=== PATIENT | female | born 1985 | race Caucasian/White ===

== ENCOUNTER 2020-08-29 09:58 | Emergency (ER) | payer MEDICAID, OTHER ==
[2020-08-29] MEDS ORDERED: BUFFERED LIDOCAINE 10 ML SYRINGE SUBQ STA (10:21)
[2020-08-29 10:29] VITALS: BP 102/66
--- NOTE | 2020-08-29 11:01 | ED Physician Documentation ---
PD HPI UPPER EXT INJURY - Stated complaint Stated Complaint: RT FINGER LAC - Chief complaint Chief Complaint: Laceration - History obtained from History obtained from: Patient - History of Present Illness Location: Right, Finger (index) Type of injury: Laceration Where injury occurred: Work Timing - onset: Today Timing - duration: Hours Timing - details: Abrupt onset, Still present in ED Improved by: Rest, Immobilization Worsened by: Moving, Palpating Associated symptoms: No: Weakness, Numbness, Tingling, Swelling Contributing factors: No: Anticoagulated Similar symptoms before: Diagnosis (laceration) Recently seen: Not recently seen - Additonal information Additional information: 35-year-old left handed female cutting vegetables with a brand-new knife lacerated her right index finger. She was able to control bleeding with direct pressure comes now for suturing she has no functional deficit. She is up-to-date on her tetanus. Review of Systems Constitutional: denies: Fever Respiratory: denies: Cough GI: denies: Vomiting PD PAST MEDICAL HISTORY - Past Medical History Past Medical History: No Cardiovascular: None Respiratory: None Neuro: None Endocrine/Autoimmune: None GI: None [employer]: None : None HEENT: None Psych: None Musculoskeletal: None Derm: None - Past Surgical History Past Surgical History: No - Present Medications Home Medications: Ambulatory Orders Medication Instructions Recorded Confirmed No Known Home Medications 08/29/20 08/29/20 - Allergies Allergies/Adverse Reactions: Allergies Allergy/AdvReac Type Severity Reaction Status Date / Time No Known Drug Allergies Allergy Verified 08/29/20 10:05 - Social History Does the pt smoke?: No Smoking Status: Former smoker Does the pt drink ETOH?: Yes Does the pt have substance abuse?: No - Immunizations Immunizations are current?: Yes PD ED PE NORMAL - Vitals Vital signs reviewed: Yes (Hypertensive mild) - General General: Alert and oriented X 3, No acute distress, Well developed/nourished - HEENT HEENT: Atraumatic, PERRL, EOMI - Neck Neck: Supple, no meningeal sign - Respiratory Respiratory: No respiratory distress - Derm Derm: Normal color, Warm and dry, No rash - Extremities Extremities: No deformity, No edema, Other (There is a 3 cm laceration to the right index finger over the radial surface of the proximal phalange of the second digit. Distal neurovascular intact and no foreign body) Results - Vitals Vitals: Vital Signs - 24 hr 08/29/20 08/29/20 10:02 10:28 Temperature 36.2 C L 36.6 C Heart Rate 91 75 Respiratory 16 18 Rate Blood Pressure 130/82 H 102/66 O2 Saturation 98 100 Oxygen O2 Source Room air Procedures - Laceration (location) Right index Length in cm: 3 Wound type: Curved, Flap, Into subcut fat Neurovascular status: Sensory intact, Motor intact, Vascular intact Anesthesia: Lidocaine 1%, With bicarb Wound preparation: Hibiclens, Irrigated copiously NS, Wound explored, To the base Skin layer closure: Nylon, Interrupted, Size #-0 - enter number (5-0), Sutures - enter # (5) Other: Patient tolerated well, No complications, Neurovascular intact, Dressing applied, Tetanus UTD PD MEDICAL DECISION MAKING - ED course Complexity details: considered differential, d/w patient ED course: 35-year-old female with a laceration of the right finger has a laceration repair done with suturing after anesthetic tolerates this well. Departure - Departure Disposition: 01 Home, Self Care Clinical Impression: Laceration of right index finger Qualifiers: Encounter type: initial encounter Damage to nail status: without damage Foreign body presence: without foreign body Qualified Code(s): S61.210A - Laceration without foreign body of right index finger without damage to nail, initial encounter Condition: Stable Instructions: ED Laceration Hand Follow-Up: [facility] [Provider Group] Comments: Sutures will need to be removed in 7 to 10 days.
== END 2020-08-29 11:18 | disposition home or self-care (01) ==
LOC: ED 09:58
DX: S61.210A Laceration without foreign body of right index finger without damage to nail, initial encounter (principal); W26.0XXA Contact with knife, initial encounter; Y93.G1 Activity, food preparation and clean up; Y99.0 Civilian activity done for income or pay; Z87.891 Personal history of nicotine dependence
CPT/HCPCS: 12002; 99281; 99282